=== PATIENT | male | born 1990 | race Caucasian/White ===

== ENCOUNTER 2024-05-02 09:40 | Inpatient (IN) | payer SELFPAY ==
[2024-05-02] VITALS (19 sets, daily range): BP systolic 104–132; BP diastolic 65–89; PULSE 103–125; TEMP 36.6–36.8; O2SAT 95–99; BMI 25.8; BMI 25.7
--- NOTE | 2024-05-02 10:04 | ECG_ITS ---
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
--- NOTE | 2024-05-02 10:04 | XR_ITS ---
The [address] [address] Patient Name: REMINGTON JACK MRN: [id number] date: 1990 Sex: M Assigned Patient Location: ER Current Patient Location: ER Accession/Order Number: [id number] Exam Date: 05/02/2024 10:40 Report Date: 05/02/2024 11:35 At the request of: WISAM PERRY Procedure: XR chest 1V EXAMINATION: XR chest 1V HISTORY: sepsis COMPARISON: No relevant comparison available. TECHNIQUE: AP portable FINDINGS: LUNGS: No significant pulmonary parenchymal abnormalities. VASCULATURE: No increased pulmonary vasculature. PLEURA: No pneumothorax, effusion, or pleural thickening. CARDIAC: No cardiomegaly or cardiac silhouette abnormality. MEDIASTINUM: No visible mass or adenopathy. BONES: No fracture or visible bone lesion. OTHER: Negative. XR/XR chest 1V IMPRESSION: No acute cardiopulmonary process Electronically authenticated by: JELENA RIBEIRO Date: 05/02/2024 11:35
--- NOTE | 2024-05-02 10:08 | ED_ITS ---
HPI HPI - General Adult General Chief complaint: Urogenital-Male Stated complaint: GENERAL WEAKNESS/ BLOOD IN URINE Time Seen by Provider: 05/02/24 10:04 Source: patient Mode of arrival: Wheelchair Limitations: no limitations History of Present Illness HPI narrative: Patient is a 33-year-old male who is presenting to the ER with chief complaint of multiple complaints. Patient does not remember what day last week he was at [facility]. Patient is telling me that he had a urine sample done, blood work, and the ultrasound. Patient does not remember the ultrasound results. Patient does not know when antibiotic was prescribed. Patient said that he was too busy and never picked up his antibiotic. Patient has a history of kidney stones. Patient states that his left testicle is becoming more swollen than it was last week when he is at [facility]. Patient has mild fever and some chills. Patient states he has left lower quadrant pain and left flank pain. Patient does have a history of kidney stones, patient girlfriend is at bedside. Patient used to drink excessive alcohol in the past, now he will drink a couple tall boys intermittently, he has not had any in the past week. Patient does smoke cigarettes, patient also does daily methamphetamines, he has not had any meth in the last 2 or 3 days. Patient is tachycardic, patient could be toxic, patient does not feel wet. Patient girlfriend at bedside. Patient states he is having dysuria, frequency and urgency. Patient states that his left testicle is larger than it was last week. We are obtaining records from [facility] as well. All systems are negative except as noted/marked. All systems reviewed and otherwise negative. Nurses note and vital signs reviewed and patient is not hypoxic. General: The patient appears sick, not lethargic. Nursing staff María GOMEZ mention the patient was lethargic, this is not accurate. Patient is alert and orient x 3, patient looks sick but possibly slightly toxic but not lethargic. Patient is uncomfortable secondary to pain. Patient has mild distress secondary to pain of his left testicle. Patient is resting uncomfortably on cart. Patient is not toxic, lethargic, or listless Skin: Warm, dry, no pallor noted. There is no rash noted. No petechiae, purpura. Head: Normocephalic, atraumatic Eye: Normal conjunctiva, no drainage, EOMI. PERRL Ears, Nose, Mouth, and Throat: oral mucosa is moist. Nares patent. Mouth without vesicles. Cardiovascular: Regular Rate and Rhythm, no murmur, gallop, rub Respiratory: Patient is in no distress, no accessory muscle use, lungs are clear to auscultation, no wheezing, rales or rhonchi Back: non-tender, no CVA tenderness bilaterally to percussion. No CT LS midline pain GI: Mild to moderate left lower quadrant tenderness palpation, mild to moderate left flank tenderness to palpation, mild left CVA tenderness to palpation. No tenderness to palpation, no masses appreciated. No rebound, guarding, or rigidity noted. No distention : Patient is not circumcised, patient has a large swollen left testicle, no tenderness to palpation to the right testicle. Patient does have moderate to severe tenderness to palpation to the left inferior posterior aspect of his left testicle. No rash. No lesions, no redness or signs of infection underneath the scrotum to his perineum or around his anus. Musculoskeletal: Patient has full range of motion of all of the extremities, no motor, sensory, or focal neurological deficits Neurological: A&O x4, normal speech Psychiatric: Cooperative Related Data Allergies Allergy/AdvReac Type Severity Reaction Status Date / Time NSAIDS (Non-Steroidal Allergy Severe Anaphylaxis Verified 05/02/24 09:55 Anti-Inflamma Opioid HPI Opioid Management Most Recent Opioid Data: Last Pain Scale 8 05/02/24 11:55 Last MAR Pain Assessment 05/02/24 11:55 Exam Constitutional Vital Signs, click to edit/add: Last Vital Signs Temp 98.2 F 05/02/24 09:52 Pulse 115 H 05/02/24 11:30 Resp 24 H 05/02/24 11:30 BP 118/89 05/02/24 10:01 Pulse Ox 96 05/02/24 11:30 O2 Del Method Room Air 05/02/24 09:52 Course Vital Signs Vital signs: Vital Signs Temperature 98.2 F 05/02/24 09:52 Pulse Rate 125 H 05/02/24 09:52 Respiratory Rate 18 05/02/24 09:52 Blood Pressure 132/87 05/02/24 09:52 Pulse Oximetry 99 05/02/24 09:52 Oxygen Delivery Method Room Air 05/02/24 09:52 Temperature 98.2 F 05/02/24 09:52 Pulse Rate 115 H 05/02/24 11:30 Respiratory Rate 24 H 05/02/24 11:30 Blood Pressure 118/89 05/02/24 10:01 Pulse Oximetry 96 05/02/24 11:30 Oxygen Delivery Method Room Air 05/02/24 09:52 Medical Decision Making MDM Narrative Medical decision making narrative: Patient has a sepsis workup in place. We are obtaining records from [facility]. Patient had a CT of the abdomen pelvis ordered to rule out stone. Patient says that he only had an ultrasound done at [facility]. Since patient left testicle is larger, we are repeating ultrasound. Patient is given morphine, Zofran, and sepsis fluids. In looking at records from [facility], patient was there on April 27, last week. Patient had a white blood cell count of 12, sodium 134, positive amphetamines which patient does admit to using meth. Patient did have urinary tract infection with UTI esterase, red blood cells, white blood cells, patient's culture report did grow greater than 1000 E. coli which was done 2 days later. Patient is susceptible to all medications. Patient actually did have a CAT scan of his abdomen pelvis that showed a 4 mm nonobstructing right lower pole renal calculus, patient was not passing any stone at that time. Patient had moderate thickening of the urinary bladder at that time, suggestive of cystitis. I do not have the ultrasound report that was done, but he did have a CAT scan. Patient may be confusing a CAT scan for ultrasound. Patient was prescribed Keflex that he never picked up with the pharmacy. 1110 patient preliminary report of ultrasound shows left epididymitis, no obvious signs of torsion. We are waiting for the official ultrasound report 1150 US official report shows; IMPRESSION: Findings suggesting left epididymitis CT abd/pelvis: MPRESSION: Inflammatory changes of the prostate and urinary bladder, consider prostatitis/cystitis without evidence of pyelonephritis Patient white blood cell count is 15, patient has elevated LFTs as well. Patient does admit to history of methamphetamine use. 1145 I have spoken to Dr. Benedict, patient will be admitted for IV antibiotics. Patient has left epididymitis, and hemorrhagic cystitis as well. Patient has no other active passing kidney stone. Patient has no other acute findings on CT. Patient has no bandemia. Patient has been given sepsis fluids along with Zosyn. Patient will be admitted for further antibiotic treatment. Patient has not failed outpatient treatment because he never went to fern picker his Keflex from intraparotid to treat his infection as an outpatient once he was discharged from [facility] on . Sepsis protocols have been in place. Critical care time 31 minutes exclusive from separate billable procedures that were performed. The following was considered in the determination of critical care but not limited to the level of medical decision making, intensive cardiac and/or respiratory monitoring, frequent vital sign monitoring, evaluation of laboratory studies, evaluation of radiographic studies, oxygen monitoring, and constant monitoring and speaking to family at bedside Lab Data Labs: Lab Results 05/02/24 Range/Units 10:05 WBC 15.6 H (4.0-11.0) 10^3/uL RBC 4.93 (4.70-6.10) 10^6/uL Hgb 14.9 (14.0-18.0) g/dL Hct 44.3 (42.0-54.0) % MCV 89.9 (80.0-94.0) fL MCH 30.2 (25.9-34.0) pg MCHC 33.6 (29.9-35.2) g/dL RDW 12.2 (11.0-15.0) % Plt Count 305 (150-450) 10^3/uL MPV 9.2 L (9.5-13.5) fL Neut % (Auto) 85.4 H (43.0-75.0) % Lymph % (Auto) 6.6 L (20.5-60.0) % Mclean % (Auto) 6.3 (1.7-12.0) % Eos % (Auto) 0.8 L (0.9-7.0) % Baso % (Auto) 0.5 (0.2-2.0) % Neut # (Auto) 13.3 H (1.4-6.5) 10^3/uL Lymph # (Auto) 1.0 L (1.2-3.8) 10^3/uL Mclean # (Auto) 1.0 H (0.3-0.8) 10^3/uL Eos # (Auto) 0.1 (0.0-0.7) 10^3/uL Baso # (Auto) 0.1 (0.0-0.1) 10^3/uL Abs Immat Gran (auto) 0.06 H (0.00-0.03) 10^3/uL Imm/Tot Granulo (auto) 0.4 (0.0-0.5) % PT 10.3 (9.0-11.6) sec INR 0.97 VBG pH 7.454 H (7.330-7.430) VBG pCO2 36.7 L (40.0-52.0) mmHg Sodium 131 L (136-145) mmol/L Potassium 4.5 (3.5-5.1) mmol/L Chloride 97 L (98-107) mmol/L Carbon Dioxide 26.1 (21.0-32.0) mmol/L Anion Gap 12.4 BUN 15.0 (7.0-18.0) mg/dL Creatinine 0.93 (0.70-1.30) mg/dL Est GFR ( Amer) >60 (>=60) Est GFR (Non-Af Amer) >60 (>=60) BUN/Creatinine Ratio 16.1 Glucose 95 (74-106) mg/dL Lactate 1.0 (0.4-2.0) mmol/L Calcium 9.0 (8.5-10.1) mg/dL Magnesium 1.8 (1.8-2.4) mg/dL Total Bilirubin 0.4 (0.2-1.0) mg/dL AST 56 H (15-37) U/L ALT 185 H (16-63) U/L Alkaline Phosphatase 156 H (46-116) U/L Troponin I High Sens 13.2 (4.0-76.1) pg/mL NT-Pro-B Natriuret Pep 40.0 (<=450.0) pg/mL Total Protein 7.2 (6.4-8.2) g/dL Albumin 3.0 L (3.4-5.0) g/dL Globulin 4.2 g/dL Albumin/Globulin Ratio 0.7 ECG Data Attestation: I personally reviewed and interpreted this ECG as follows: (EKG interpretation. Sinus tachycardia at 117. Normal axis deviation. No acute ST elevation, no acute ectopy. QTc of 365.) Discharge Plan Discharge Chief Complaint: Urogenital-Male Clinical Impression: Hemorrhagic cystitis, Epididymitis, left, Left testicular pain, Methamphetamine abuse Patient Disposition: Admitted As Inpatient Time of Disposition Decision: 11:55 Condition: Fair
[2024-05-02 10:13] LABS: Basophils Absolute Auto 0.1 10^3/uL (0.0-0.1); Basophils Percent Auto 0.5 % (0.2-2.0); Eosinophils Absolute Auto 0.1 10^3/uL (0.0-0.7); Eosinophils Percent Auto 0.8 % (0.9-7.0); Hematocrit 44.3 % (42.0-54.0); Hemoglobin 14.9 g/dL (14.0-18.0); Immature Granulocytes Abs Auto 0.06 10^3/uL (0.00-0.03); Immature Granulocytes Pct Auto 0.4 % (0.0-0.5); Lymphocytes Percent Auto 6.6 % (20.5-60.0); Mean Corpuscular HGB Conc 33.6 g/dL (29.9-35.2); Mean Corpuscular Hemoglobin 30.2 pg (25.9-34.0); Mean Corpuscular Volume 89.9 fL (80.0-94.0); Mean Platelet Volume 9.2 fL (9.5-13.5); Monocytes Percent Auto 6.3 % (1.7-12.0); Neutrophils Absolute Auto 13.3 10^3/uL (1.4-6.5); Neutrophils Percent Auto 85.4 % (43.0-75.0); Platelet Count 305 10^3/uL (150-450); Red Blood Count 4.93 10^6/uL (4.70-6.10); Red Cell Distribution Width 12.2 % (11.0-15.0); White Blood Count 15.6 10^3/uL (4.0-11.0)
[2024-05-02] MEDS: PIPERACILLIN SODIUM/TAZOBACTAM 4.5 GM in 0.9 % SODIUM CHLORIDE 50 ML IV (10:18)
[2024-05-02] MEDS: LACTATED RINGER S 776 ML IV (10:19)
[2024-05-02 10:27] LABS: INR 0.97; Prothrombin Time 10.3 sec (9.0-11.6)
[2024-05-02 10:28] LABS: PCO2 VBG 36.7 mmHg (40.0-52.0); pH VBG 7.454 (7.330-7.430)
--- NOTE | 2024-05-02 10:30 | US_ITS ---
[address] [address] Patient Name: REMINGTON JACK MRN: [id number] date: 1990 Sex: M Assigned Patient Location: ER Current Patient Location: ER Accession/Order Number: [id number] Exam Date: 05/02/2024 10:31 Report Date: 05/02/2024 11:34 At the request of: WISAM PERRY Procedure: US scrotum doppler EXAM: US scrotum doppler HISTORY: Left testicle pain COMPARISON: None. TECHNIQUE: Grayscale, color and Doppler FINDINGS: The right testicle is normal in size, contour and homogeneous echotexture measuring 4.6 x 2.3 x 3.2 cm. Normal color and Doppler flow. The right epididymis is normal. No right hydrocele or varicocele. The left testicle is normal in size, contour and homogeneous echotexture measuring 4.9 x 2.4 x 3.5 cm. Normal color Doppler flow. The left epididymis is asymmetrically enlarged and hypervascular. Moderate right hydrocele measuring 3.8 x 1.8 cm. No left varicocele US/US scrotum doppler IMPRESSION: Findings suggesting left epididymitis Electronically authenticated by: JELENA RIBEIRO Date: 05/02/2024 11:34
[2024-05-02 10:47] LABS: Alanine Aminotransferase 185 U/L (16-63); Albumin Globulin Ratio 0.7; Alkaline Phosphatase 156 U/L (46-116); Anion Gap 12.4; Aspartate Amino Transferase 56 U/L (15-37); BUN Creatinine Ratio 16.1; Bilirubin Total 0.4 mg/dL (0.2-1.0); Carbon Dioxide 26.1 mmol/L (21.0-32.0); Chloride 97 mmol/L (98-107); Estimated GFR (African America >60 (>=60); Estimated GFR (Non-African Ame >60 (>=60); Globulin 4.2 g/dL; Glucose 95 mg/dL (74-106); Magnesium 1.8 mg/dL (1.8-2.4); Potassium 4.5 mmol/L (3.5-5.1); Sodium 131 mmol/L (136-145); Total Protein 7.2 g/dL (6.4-8.2); Troponin I High Sensitivity 13.2 pg/mL (4.0-76.1)
--- NOTE | 2024-05-02 10:50 | CT_ITS ---
[address] [address] Patient Name: REMINGTON JACK MRN: [id number] date: 1990 Sex: M Assigned Patient Location: ER Current Patient Location: ER Accession/Order Number: [id number] Exam Date: 05/02/2024 10:40 Report Date: 05/02/2024 11:41 At the request of: WISAM PERRY Procedure: CT abdomen pelvis w con EXAMINATION: CT abdomen pelvis w con HISTORY: sepsis COMPARISON: No relevant comparison available. TECHNIQUE: CT images were created with IV contrast. Axial, Coronal, and Sagittal images. Dose reduction techniques were achieved by using automated exposure control and/or adjustment of mA and/or kV according to patient size and/or use of iterative reconstruction technique. FINDINGS: LUNG BASES: No visible pulmonary or pleural disease. LIVER: No enlargement, atrophy, abnormal density, or significant focal lesion. BILIARY: No visible dilatation or calcification. PANCREAS: No lesion, fluid collection, ductal dilatation, or atrophy. SPLEEN: No enlargement or focal lesion. ADRENALS: No mass or enlargement. KIDNEYS: Punctate nonobstructing right nephrolith. No hydronephrosis BOWEL/MESENTERY: No visible mass, obstruction, or bowel wall thickening. AORTA/VASCULAR: No aneurysm or dissection. RETROPERITONEUM: No mass or adenopathy. LYMPH NODES: No adenopathy. URINARY BLADDER: Diffuse thickening of the urinary bladder wall measuring 11 mm with hypervascular appearance of the lining and inflammatory changes of the surrounding fat PELVIC ORGANS: Mildly enlarged heterogeneous prostate gland ABDOMINAL WALL: 2.4 cm umbilical hernia containing fat without strangulation BONES: No bony lesion or fracture. OTHER: Negative. CT/CT abdomen pelvis w con IMPRESSION: Inflammatory changes of the prostate and urinary bladder, consider prostatitis/cystitis without evidence of pyelonephritis Electronically authenticated by: JELENA RIBEIRO Date: 05/02/2024 11:41
[2024-05-02] MEDS: MORPHINE SULFATE 4 MG/ML VIAL IV ×2 (10:54→11:55)
[2024-05-02] MEDS: ONDANSETRON PF 4 MG/2 ML VIAL IV (10:54)
--- NOTE | 2024-05-02 12:11 | P.HP_ITS ---
HPI H&P: HPI History of Present Illness Chief complaint: GENERAL WEAKNESS/ BLOOD IN URINE Narrative: Patient is a 33 y.o white male who presented to the ER with a 1 week history of urinary urgency, frequency, pain and blood in his urine. He had went to another local ER and failed to case picker his antibiotic. He return to the ER here today with all the same symptoms. He notes his girlfriend has Hepatitis (uncertain of what kind), he said other hospital tested for STI's but he has not heard results. He also notes swelling of his left testicle. ER findings: prior Urine culture positive for E.coli per ER doctor; CT showed prostatitis and cystitis, Scrotal ultrasound showed left epididymitis, right non obstructing stone. LFT's 185/56, Heart rate 125, temp 98 Patient was given Zosyn IV x 1. Opioid HPI Opioid Management Most Recent Pain and Opioid Data: Last Pain Scale 8 05/02/24 14:08 Last Pain Assessment 05/02/24 13:56 Last MAR Pain Assessment 05/02/24 14:08 Last ORT Total Score 18 05/02/24 13:17 Last ORT Risk Category High Risk 05/02/24 13:17 Last COWS Score 2 05/02/24 13:21 Review of Systems ROS Narrative ROS: a complete review of systems were reviewed with patient and are positive as below or listed in History of Chief Complaint. General: fever, chills, night sweats Head: no headache, trauma, visual changes, nausea or vomiting Skin: no reported rashes, itching or sores Eyes: no blurriness of vision Ears: no reported hearing loss, vertigo, earache, or tinnitus Throat: sore throat, no hoarseness, swelling of neck, or tongue pain Heart: no chest pain Lungs: no shortness of breath or no cough GI: no diarrhea or vomiting/nausea Urinary:urinary urgency, frequency and pain Neuro: no numbness or tingling HEM: no bleeding issues or bruising ENDO: no thyroid problems Psych: no anxiety or depression PFSH PFSH Surgical History History of appendectomy ?Z90.49 - Acquired absence of other specified parts of digestive tract (ICD- 10) Family History Mother Family history of COPD (chronic obstructive pulmonary disease) Family history of hypertension Father Family history of hypertension Family history of myocardial infarction Social History Within the past year, how often did you have a drink containing alcohol: 2-3 times a week Within the past year, how many standard drinks containing alcohol did you have on a typical day: 3 or 4 Within the past year, how often did you have six or more drinks on one occasion: monthly Total score: 4 Score interpretation: A score of 4 or more indicates drinking is likely to affect patient's safety. Smoking status: Current every day smoker Second hand tobacco smoke exposure: No Non-prescribed substance use: cannabis (any form), crack/cocaine and amphetamines/methamphetamines Previous occupational history: maintenance Known occupational exposures/hazards: No Highest level of school completed/degree received: 11th grade Do you want help with school or training: No Are you now , , , , never or living with a partner: living with partner In a typical week, how many times do you talk on the telephone with family, friends, or neighbors: 3 or more times per week How often do you get together with friends or relatives: 3 or more times per week How often do you attend scientologist or confucianist services: never Do you belong to any clubs or organizations such as scientologist groups unions, fraternal or athletic groups, or school groups: no Total score: 2 Score interpretation: A score of greater than or equal to 2 indicates the lowest level of social isolation. Little interest or pleasure in doing things: not at all Feeling down, depressed, or hopeless: not at all Feel stressed/tense/nervous/anxious/difficulty sleeping: not at all Due to disability, difficulty making decisions: No Do you think of yourself as: straight/heterosexual Gender Identity: male Meds Home Medications and Allergies Home Medications ?Medication ?Instructions ?Recorded ?Confirmed ?Type No Known Home Medications 05/02/24 05/02/24 History Allergies Allergy/AdvReac Type Severity Reaction Status Date / Time NSAIDS (Non-Steroidal Allergy Severe Anaphylaxis Verified 05/02/24 09:55 Anti-Inflamma Exam Narrative Exam Narrative: General: Patient is alert, and oriented to person, place and time with normal affect, proper hygiene Skin: no visible rashes, or ulcers, multiple tattoos cover body/arms Head: atraumatic, acephalic Eyes: PERRLA, no nystagmus present, conjunctiva clear, no scleral icterus Ears: normal Tympanic Membrane, normal gross auditory acuity Heart: increased rate and normal rhythm, no murmurs/rubs/gallops Lungs: no audible wheezes, crackles and normal breath sounds all lung agee Abdomen: Normal audible bowel sounds, no distension, No palpable masses, no organomegaly, no rebound/guarding/ or rigidity Musculoskeletal: no swelling bilateral lower extremities Neuro: CN II-X grossly intact Constitutional Vital Signs, click to edit/add: Last Vital Signs Temp 98.2 F 05/02/24 09:52 Pulse 115 H 05/02/24 11:30 Resp 24 H 05/02/24 11:30 BP 118/89 05/02/24 10:01 Pulse Ox 96 05/02/24 11:30 O2 Del Method Room Air 05/02/24 09:52 Results Labs Labs: Short CBC 05/02/24 Range/Units 10:05 WBC 15.6 H (4.0-11.0) 10^3/uL Hgb 14.9 (14.0-18.0) g/dL Hct 44.3 (42.0-54.0) % Plt Count 305 (150-450) 10^3/uL BMP 05/02/24 10:05 Sodium 131 L Potassium 4.5 Chloride 97 L Carbon Dioxide 26.1 BUN 15.0 Creatinine 0.93 Glucose 95 Calcium 9.0 Liver Function 05/02/24 Range/Units 10:05 Total Bilirubin 0.4 (0.2-1.0) mg/dL AST 56 H (15-37) U/L ALT 185 H (16-63) U/L Alkaline Phosphatase 156 H (46-116) U/L Albumin 3.0 L (3.4-5.0) g/dL ABG ABG results: 05/02/24 10:05 VBG pH 7.454 H VBG pCO2 36.7 L Assessment and Plan Assessment and Plan (1) Hemorrhagic cystitis: (2) Epididymitis, left: (3) Prostatitis: Qualifiers: Prostatitis type: acute Qualified Code(s): N41.0 - Acute prostatitis (4) Elevated LFTs: Plan findings as seen on CT and ultrasound. Will send for GC/Chlamydia testing. Treat with Levaquin 750mg IV daily. Normal renal function. Pain control as needed. Will also check acute hepatitis panel, concern for Hep C in the setting of abnormal LFT's and Drug use/partner history. WBC's elevated 15.6. Cr 0.93; recheck UA and culture. Continue IVF. Patient is a full code SCD's for DVT prophylaxis Patient is inpatient status, requiring IV antibiotic therapy.
--- NOTE | 2024-05-02 14:06 | SWNOTE1 ---
SW met with pt to discuss dc needs. Pt moved here from [place] 3 years ago for a job. He was living with his parents in [place] but is not at this time. Pt's girlfriend brought him in. She is basically his only support at this time. Pt does admit to meth/amph use. He recently lost a job. He has applied for Medicaid over the phone about 1-2 weeks ago. He voiced he has zero income so he should qualify. Pt also voiced he has been to outpt/inpt rehab/counseling back in [place] but not here in [place]. Pt is open to SW providing resources/information for help in this area. At this time not open to going inpt anywhere. SW to check resources and provide to pt. SW to follow as needed.
[2024-05-02] MEDS: OXYCODONE HCL/ACETAMINOPHEN 5MG/325MG 1 TAB PO ×2 (14:08→20:08)
[2024-05-02] MEDS: LEVOFLOXACIN IN DEXTROSE 5 % 750 MG/150 ML PREMIX 100 MG IV (14:12)
--- NOTE | 2024-05-02 14:31 | SWNOTE1 ---
SW notified patient financial services about pt applying for Medicaid 1-2 weeks ago. SW took pt resources for inpt/outpt information for drug use.
[2024-05-02 14:37] LABS: Bilirubin Urine NEGATIVE (NEGATIVE); Blood Urine TRACE-I (NEGATIVE); Color Urine LT. YELLOW (YELLOW); Glucose Urine UA NEGATIVE (NEGATIVE); Ketones Urine NEGATIVE (NEGATIVE); Leukocyte Esterase Urine SMALL (NEGATIVE); Protein Urine 30 mg/dL (NEG/TRACE)
[2024-05-02 14:40] LABS: Clarity Urine CLOUDY (CLEAR)
--- NOTE | 2024-05-02 14:48 | SWNOTE1 ---
SW received an email back from [facility] and they voiced someone will be in to see pt today and have [place] reach out to pt to assist with his Medicaid.
[2024-05-02 14:50] LABS: Bacteria Urine SMALL #/HPF (NONE SEEN); Mucus Urine NONE SEEN (NONE SEEN); Squamous Epithelial Cell Urine FEW #/LPF (NONE/RARE); WBC Urine 20-50 #/HPF (NONE SEEN)
[2024-05-02 14:53] LABS: Nitrite Urine POSITIVE (NEGATIVE)
[2024-05-02 14:57] LABS: Amphetamine Screen Urine POSITIVE (NEGATIVE); Cannabinoid Screen Urine NEGATIVE (NEGATIVE); Cocaine Screen Urine NEGATIVE (NEGATIVE); Methamphetamines Screen Urine POSITIVE (NEGATIVE); Opiate Screen Urine POSITIVE (NEGATIVE); Phencyclidine Screen Urine NEGATIVE (NEGATIVE)
[2024-05-02 14:58] LABS: Barbiturates Screen Urine NEGATIVE (NEGATIVE); Benzodiazepines Screen Urine NEGATIVE (NEGATIVE); Buprenorphine Screen Urine NEGATIVE (NEGATIVE); Methadone Screen Urine NEGATIVE (NEGATIVE); Oxycodone Screen Urine NEGATIVE (NEGATIVE); Tricyclic Antidepressant Urine NEGATIVE (NEGATIVE)
[2024-05-02] MEDS: LACTATED RINGER'S SOLUTION 1,000 ML 125 ML IV (20:08)
[2024-05-03] VITALS (8 sets, daily range): BP systolic 103–104; BP diastolic 52–62; PULSE 79–113; TEMP 36.4–36.7; O2SAT 94–95
[2024-05-03 05:08] LABS: HBsAg Screen Negative (Negative); HCV Ab Non Reactive (Non Reactive); Hep A Ab, IgM Negative (Negative); Hep B Core Ab, IgM Negative (Negative)
[2024-05-03] MEDS: OXYCODONE HCL/ACETAMINOPHEN 5MG/325MG 1 TAB PO (05:40)
[2024-05-03] MEDS: LACTATED RINGER'S SOLUTION 1,000 ML 125 ML IV (05:41)
[2024-05-03 06:28] LABS: Basophils Absolute Auto 0.1 10^3/uL (0.0-0.1); Basophils Percent Auto 0.6 % (0.2-2.0); Eosinophils Absolute Auto 0.2 10^3/uL (0.0-0.7); Eosinophils Percent Auto 2.1 % (0.9-7.0); Hematocrit 36.3 % (42.0-54.0); Immature Granulocytes Abs Auto 0.08 10^3/uL (0.00-0.03); Immature Granulocytes Pct Auto 0.8 % (0.0-0.5); Lymphocytes Absolute Auto 1.9 10^3/uL (1.2-3.8); Lymphocytes Percent Auto 18.2 % (20.5-60.0); Mean Corpuscular HGB Conc 33.1 g/dL (29.9-35.2); Mean Corpuscular Hemoglobin 30.5 pg (25.9-34.0); Mean Corpuscular Volume 92.1 fL (80.0-94.0); Mean Platelet Volume 9.5 fL (9.5-13.5); Monocytes Absolute Auto 0.7 10^3/uL (0.3-0.8); Monocytes Percent Auto 6.8 % (1.7-12.0); Neutrophils Absolute Auto 7.3 10^3/uL (1.4-6.5); Neutrophils Percent Auto 71.5 % (43.0-75.0); Platelet Count 252 10^3/uL (150-450); Red Blood Count 3.94 10^6/uL (4.70-6.10); Red Cell Distribution Width 12.6 % (11.0-15.0); White Blood Count 10.2 10^3/uL (4.0-11.0)
[2024-05-03 06:51] LABS: Alanine Aminotransferase 162 U/L (16-63); Albumin Globulin Ratio 0.7; Albumin Level 2.3 g/dL (3.4-5.0); Alkaline Phosphatase 133 U/L (46-116); Aspartate Amino Transferase 77 U/L (15-37); BUN Creatinine Ratio 14.8; Bilirubin Total 0.3 mg/dL (0.2-1.0); Calcium 8.7 mg/dL (8.5-10.1); Carbon Dioxide 29.1 mmol/L (21.0-32.0); Chloride 103 mmol/L (98-107); Estimated GFR (African America >60 (>=60); Estimated GFR (Non-African Ame >60 (>=60); Globulin 3.5 g/dL; Glucose 144 mg/dL (74-106); Potassium 4.1 mmol/L (3.5-5.1); Sodium 137 mmol/L (136-145); Total Protein 5.8 g/dL (6.4-8.2)
--- NOTE | 2024-05-03 08:21 | PM.PN ---
Exam Constitutional Vital Signs, click to edit/add: Last Vital Signs Temp 97.5 F L 05/03/24 08:09 Pulse 83 05/03/24 08:09 Resp 16 05/03/24 08:16 BP 104/62 05/03/24 08:09 Pulse Ox 95 05/03/24 08:09 O2 Del Method Room Air 05/03/24 08:09 Progress Note: Objective Labs Labs: Short CBC 05/02/24 05/03/24 Range/Units 10:05 06:00 WBC 15.6 H 10.2 (4.0-11.0) 10^3/uL Hgb 14.9 12.0 L (14.0-18.0) g/dL Hct 44.3 36.3 L (42.0-54.0) % Plt Count 305 252 (150-450) 10^3/uL BMP 05/02/24 05/03/24 10:05 06:00 Sodium 131 L 137 Potassium 4.5 4.1 Chloride 97 L 103 Carbon Dioxide 26.1 29.1 BUN 15.0 12.0 Creatinine 0.93 0.81 Glucose 95 144 H Calcium 9.0 8.7 Liver Function 05/02/24 05/03/24 Range/Units 10:05 06:00 Total Bilirubin 0.4 0.3 (0.2-1.0) mg/dL AST 56 H 77 H (15-37) U/L ALT 185 H 162 H (16-63) U/L Alkaline Phosphatase 156 H 133 H (46-116) U/L Albumin 3.0 L 2.3 L (3.4-5.0) g/dL Urine 05/02/24 Range/Units 13:05 Urine Color Lt. yellow (YELLOW) Urine Clarity Cloudy A (CLEAR) Urine pH 8.0 (5.0-9.0) Ur Specific [place] 1.010 (1.005-1.025) Urine Protein 30 A (NEG/TRACE) mg/dL Urine Glucose (UA) Negative (NEGATIVE) mg/dL Progress Note: A&P Assessment and Plan (1) Hemorrhagic cystitis: (2) Epididymitis, left: (3) Prostatitis: Qualifiers: Prostatitis type: acute Qualified Code(s): N41.0 - Acute prostatitis (4) Elevated LFTs:
--- NOTE | 2024-05-03 10:48 | CM.NOTE ---
Addendum entered by Juju Albrecht 05/03/24 11:08: Pt given good RX care for assistance with medication. Original Note: Rounds made with Dr. Benedict, discussed with pt discharge to home today. Pt will need P.O antibiotics at discharge. Pt will also need a PCP for f/u appointment.
--- NOTE | 2024-05-03 10:52 | PM.DS1 ---
DS: Providers Provider Date of admission: 05/02/24 12:56 Primary care physician: Non-Staff Physician, Admitting clinician: Shayna Benedict Discharging clinician: Shayna Benedict DS: Diagnosis Discharge Diagnosis (1) Hemorrhagic cystitis: (2) Epididymitis, left: (3) Prostatitis: Qualifiers: Prostatitis type: acute Qualified Code(s): N41.0 - Acute prostatitis (4) Elevated LFTs: DS: Summary Hospital Course Hospital Course: Patient is a 33 y.o white male who presented to the ER with a 1 week history of urinary urgency, frequency, pain and blood in his urine. He had went to another local ER and failed to pick remover his antibiotic. He return to the ER here today with all the same symptoms. He notes his girlfriend has Hepatitis (uncertain of what kind), he said other hospital tested for STI's but he has not heard results. He also notes swelling of his left testicle. ER findings: prior Urine culture positive for E.coli per ER doctor; CT showed prostatitis and cystitis, Scrotal ultrasound showed left epididymitis, right non obstructing stone. LFT's 185/56, Heart rate 125, temp 98. Patient was given Zosyn IV x 1. I placed him on Levaquin 750mg IV daily. He remained afebrile, WBC's 10.2 at the time of discharge. Still admits to some bladder pain, Given Pyridium to take at home, discussed orange color urine it would cause. We have made appointment for him to establish with PCP for follow up. I have sent Pyridum x 6 doses and Levaquin 750mg PO daily x 5 days to [facility] pharmacy. normal renal function. Patient recovered faster than anticipated. He may return to the ER with any worsening signs or symptoms. Acute hepatitis panel was negative and discussed with patient. LFT s still elevated. History of drug use, urine positive for methamphetamines. No liver pathology seen on CT scan. Status at Discharge Functional status at discharge: independent ambulation Overall status at discharge: patient is progressing back to baseline Time Spent with Patient Time attestation: Total time spent providing and/or coordinating discharge services: Time spent: greater than 30 minutes Exam Narrative Exam Narrative: General: Patient is alert, and oriented to person, place and time with normal affect, proper hygiene Skin: no visible rashes, or ulcers Head: atraumatic, acephalic Heart: Normal rate and rhythm, no murmurs/rubs/gallops Lungs: no audible wheezes, crackles and normal breath sounds all lung agee Abdomen: Normal audible bowel sounds, no distension, No palpable masses, no organomegaly, no rebound/guarding/ or rigidity Musculoskeletal: no swelling bilateral lower extremities Neuro: CN II-X grossly intact Constitutional Vital Signs, click to edit/add: Last Vital Signs Temp 97.5 F L 05/03/24 08:09 Pulse 79 05/03/24 10:00 Resp 16 05/03/24 08:16 BP 104/62 05/03/24 08:09 Pulse Ox 95 05/03/24 08:09 O2 Del Method Room Air 05/03/24 08:09 DS: Data Data Completed and Pending Labs on day of discharge: Labs from last 24 hours 05/03/24 05/02/24 05/02/24 06:00 13:05 12:34 WBC 10.2 RBC 3.94 L Hgb 12.0 L Hct 36.3 L MCV 92.1 MCH 30.5 MCHC 33.1 RDW 12.6 Plt Count 252 MPV 9.5 Neut % (Auto) 71.5 Lymph % (Auto) 18.2 L [place] % (Auto) 6.8 Eos % (Auto) 2.1 Baso % (Auto) 0.6 Neut # (Auto) 7.3 H Lymph # (Auto) 1.9 [place] # (Auto) 0.7 Eos # (Auto) 0.2 Baso # (Auto) 0.1 Abs Immat Gran (auto) 0.08 H Imm/Tot Granulo (auto) 0.8 H Sodium 137 Potassium 4.1 Chloride 103 Carbon Dioxide 29.1 Anion Gap 9.0 BUN 12.0 Creatinine 0.81 Est GFR ( Amer) >60 Est GFR (Non-Af Amer) >60 BUN/Creatinine Ratio 14.8 Glucose 144 H Calcium 8.7 Total Bilirubin 0.3 AST 77 H ALT 162 H Alkaline Phosphatase 133 H Total Protein 5.8 L Albumin 2.3 L Globulin 3.5 Albumin/Globulin Ratio 0.7 Urine Color Lt. yellow Urine Clarity Cloudy A Urine pH 8.0 Ur Specific [place] 1.010 Urine Protein 30 A Urine Glucose (UA) Negative Urine Ketones Negative Urine Occult Blood Trace-i Urine Nitrite Positive A Urine Bilirubin Negative Urine Urobilinogen 2.0 A Ur Leukocyte Esterase Small A Urine RBC 2-5 A Urine WBC 20-50 A Ur Squamous Epith Cells Few A Urine Bacteria Small A Urine Mucus None seen Urine Opiates Screen Positive A Ur Buprenorphine Scrn Negative Ur Oxycodone Screen Negative Urine Methadone Screen Negative Ur Barbiturates Screen Negative U Tricyclic Antidepress Negative Ur Phencyclidine Scrn Negative Ur Amphetamines Screen Positive A U Methamphetamines Scrn Positive A U Benzodiazepines Scrn Negative Urine Cocaine Screen Negative U Cannabinoids Screen Negative Hepatitis A IgM Ab Negative Hep Bs Antigen Negative Hep B Core IgM Ab Negative Hepatitis C Antibody Non reactive Hepatitis C Interp Comment Discharge Plan Discharge Disposition: Home, Self-Care Condition: Fair Discharge Medications: New levofloxacin 750 mg tablet 750 mg PO DAILY 5 Days Qty: 5 0RF phenazopyridine [Pyridium] 100 mg tablet 100 mg PO Q8H PRN (Reason: bladder spasms) Qty: 6 0RF Activity: increase activity as tolerated Diet: advance to your usual diet Print Language: B[place] Patient Instructions: Epididymitis (GEN), Urinary Tract Infection in Men (DC) Forms: Portal Instructions Follow Up Appointments: negrita palmer np wedmay 10 2024 1030 am, [address] [facility], Discharge location: Home
--- NOTE | 2024-05-03 11:04 | CM.NOTE ---
Discussed with pt about any financial concerns, denies any concerns. Pt states he will get antibiotic filled. Discussed with pt financial paperwork at bedside d/t being self insured. Pt denies need to assist with paperwork. Discussed with pt again about need for counseling services or drug rehab. Pt verbalizes he is not interested at this time.
[2024-05-03] MEDS: PHENAZOPYRIDINE 100 MG TABLET PO (11:12)
[2024-05-03 20:08] LABS: Neisseria gonorrhoeae, NAA Negative (Negative)
--- NOTE | 2024-05-04 13:04 | CM.DCFOLLOWU ---
Person spoke with:patient How are you feeling? alright How is your pain? still having pain Did you understand your discharge instructions? yes Do you have any questions about your discharge instructions? no Were you given any prescriptions at discharge? yes Were you able to get your prescriptions filled? someone is filling them for him today Do you understand how to take your medications as ordered? yes Do you have any questions about your follow up appointment and do you plan to keep your follow up appointment? no questions, reviewed follow up apt. Is there anything else that you would like to discuss? no Questions/Comments/Concerns/Other:none
== END 2024-05-03 12:04 | disposition home or self-care (01) | DRG 690 ==
LOC: ER 12:09 → MS 05-03 05:55
PROVIDERS: Admitting Provider Family Medicine; Emergency Provider Emergency Medicine; Visit Provider Family Medicine
DX: N30.91 Cystitis, unspecified with hematuria (principal); N41.0 Acute prostatitis; N45.1 Epididymitis; R79.89 Other specified abnormal findings of blood chemistry; F15.90 Other stimulant use, unspecified, uncomplicated
CPT/HCPCS: 36415; 71045; 74177; 76870; 80053; 80074; 80307; 81001; 82800; 83605; 83735; 83880; 84484; 85025; 85610; 87040; 87086; 87491; 87591; 93005; 93976; 96365; 96366; 96367; 96375; 96376; 99285; J2270; J2405; J2543; Q9967